=== PATIENT | female | born 2000 | race African-American/Black ===

== ENCOUNTER 2022-05-19 14:46 | Emergency (ER) | payer OTHER ==
[~2022-05-19] VITALS: Ht 170.2 cm; Wt 93.0 kg
--- NOTE | 2022-05-19 15:05 | NUR ---
BIBS C/O DIFFUSE ABD PAIN, ON&OFF x 4DAYS, ALSO C/O NAUSEA. AMBULATORY, PLACED ON BED, AAOX4, IN PAIN 10/10 PS.
--- NOTE | 2022-05-19 15:10 | NUR ---
URINE SAMPLE SENT TO LAB
--- NOTE | 2022-05-19 15:30 | NUR ---
BLOOD DRAWN AND SENT TO LAB
[2022-05-19] MEDS ORDERED: PANTOPRAZOLE 40 MG VIAL ONE (15:41)
[2022-05-19] MEDS ORDERED: ONDANSETRON HCL/PF 4 MG/2 ML VIAL ONE (15:41)
[2022-05-19] MEDS ORDERED: KETOROLAC TROMETHAMINE 15 MG/ML VIAL ONE (15:41)
[2022-05-19 15:44] LABS: BASOPHILS % (AUTO) 0.8 % (0.0-2.0); EOSINOPHILS % (AUTO) 1.7 % (0.0-6.0); HEMATOCRIT 37 % (33-45); HEMOGLOBIN 11.5 g/dL (11.5-14.8); LYMPHOCYTES # (AUTO) 1.7 K/uL (0.8-4.8); LYMPHOCYTES % (AUTO) 26.4 % (20.0-44.0); MEAN CORPUSCULAR HGB CONC 31 g/dl (31.0-36.0); MEAN CORPUSCULAR VOLUME 75 fL (82-100); MONOCYTES % (AUTO) 15.6 % (2.0-12.0); NEUTROPHILS # (AUTO) 3.6 K/uL (1.8-8.9); NEUTROPHILS % (AUTO) 55.5 % (43.0-81.0); PLATELET COUNT (AUTO) 120 K/uL (150-450); RED BLOOD CELL COUNT(AUTO) 4.89 MIL/uL (4.0-5.2); WHITE BLOOD COUNT (AUTO) 6.5 K/uL (4.3-11.0)
[2022-05-19] MEDS: IV NS 0.9% 1,000 ML BAG IV ONE (15:45)
[2022-05-19] MEDS: ONDANSETRON HCL/PF 4 MG/2 ML VIAL IVP ONE (15:46)
[2022-05-19] MEDS: KETOROLAC TROMETHAMINE INJ 30 MG/ML VIAL IV ONE (15:47)
--- NOTE | 2022-05-19 15:48 | NUR ---
TEST RESULT DONE AT [facility] =NEGATIVE
[2022-05-19] MEDS: PANTOPRAZOLE 40 MG VIAL IV ONE (15:50)
[2022-05-19 15:53] LABS: BILIRUBIN,URINE SMALL (NEGATIVE); COLOR,URINE YELLOW (YELLOW); LEUKOCYTE ESTERASE ,URINE NEGATIVE (NEGATIVE); NITRITE, URINE NEGATIVE (NEGATIVE); PROTEIN,URINE 100 mg/dl (NEGATIVE); UGLUCOSE NEGATIVE (NEGATIVE)
[2022-05-19 16:10] LABS: BACTERIA,URINE 1+ /HPF (None Seen); MUCUS,URINE Many /LPF (None Seen); RBC,URINE 51-80 /HPF (0-2); WBC,URINE 0-2 /HPF (0-3)
[2022-05-19 16:11] LABS: ALBUMIN 3.5 g/dL (3.4-5.0); BILIRUBIN,DIRECT 0.1 mg/dL (0.0-0.2); BILIRUBIN,TOTAL 0.5 mg/dL (0.2-1.0); CALCIUM, SERUM 8.6 mg/dL (8.5-10.1); CREATININE 1.2 mg/dL (0.6-1.3)
[2022-05-19 16:16] LABS: POTASSIUM 3.2 mmol/L (3.5-5.1)
[2022-05-19] MEDS ORDERED: CEPH500C2 PO (16:19)
[2022-05-19] MEDS ORDERED: ONDA4TAB5 PO (16:19)
[2022-05-19] MEDS ORDERED: IBUP-1957 PO (16:19)
[2022-05-19 16:24] LABS: BAND % (MANUAL) 7 % (0.0-5.0); EOSINOPHILS % (MANUAL) 1 % (0-4); LYMPHOCYTES % (MANUAL) 21 % (16-48); MONOCYTES % (MANUAL) 17 % (0-11.0); NEUTROPHILS % (MANUAL) 54 (42-76)
--- NOTE | 2022-05-19 17:10 | NUR ---
IV removed. Catheter intact and site benign. Pressure and 4x4 applied to site. No bleeding noted.Patient discharged to home in stable condition. Written and verbal after care instructions given. Patient verbalizes understanding of instruction.
[2022-05-19 17:20] VITALS: BP 115/79
== END 2022-05-19 17:10 | disposition home or self-care (01) ==
LOC: ER 14:49
DX: R10.84 Generalized abdominal pain (principal); N39.0 Urinary tract infection, site not specified
CPT/HCPCS: 99285; 74176; 96374; 71045; 96375; 96361; 85025; 80048; 80076; 81001; 36415; 85007; J2405; J7030; C9113; J1885

== ENCOUNTER 2022-05-22 12:57 | Inpatient (IN) | payer OTHER ==
[~2022-05-22] VITALS: Ht 170.2 cm; Wt 103.4 kg
[~2022-05-22 12:57] MED LIST: CEPH500C2 PO; IBUP-1957 PO; ONDA4TAB5 PO
--- NOTE | 2022-05-22 13:01 | NUR ---
BIBMOTHER PATIENT SENT FROM URGENT CARE TO R/O PYELONEPHRITIS, BACTEREMIA, FUO AND ABDOMINAL PAIN 03/19 X1 WEEK. HAS BEEN ON CEPHALEXIN X3DAY. ORAL TEMP ELEVATED UPON ADMISSION, AWARE. WARM BLANKET PROVIDED FOR COMFORT. AWAITING MD HERNANDEZ.
--- NOTE | 2022-05-22 13:22 | NUR ---
IV ESTABLIHSED L AC 18G. LABS DRAWN AND COLLECTED AT BEDSIDE.
[2022-05-22] MEDS ORDERED: IV NS 0.9% 1,000 ML BAG IV ONE (13:30)
[2022-05-22 13:47] LABS: BASOPHILS % (AUTO) 0.5 % (0.0-2.0); EOSINOPHILS % (AUTO) 0.3 % (0.0-6.0); HEMATOCRIT 32 % (33-45); HEMOGLOBIN 10.2 g/dL (11.5-14.8); LYMPHOCYTES # (AUTO) 1.1 K/uL (0.8-4.8); MEAN CORPUSCULAR HGB CONC 32 g/dl (31.0-36.0); MEAN CORPUSCULAR VOLUME 74 fL (82-100); MONOCYTES # (AUTO) 0.7 K/uL (0.1-1.30); MONOCYTES % (AUTO) 11.6 % (2.0-12.0); NEUTROPHILS # (AUTO) 4.4 K/uL (1.8-8.9); NEUTROPHILS % (AUTO) 70.6 % (43.0-81.0); PLATELET COUNT (AUTO) 117 K/uL (150-450); WHITE BLOOD COUNT (AUTO) 6.3 K/uL (4.3-11.0)
[2022-05-22] MEDS ORDERED: IV NS 0.9% 250 ML IV ONE (13:55)
[2022-05-22] MEDS ORDERED: IOHEXOL-300 100 ML VIAL IV ONE (13:55)
[2022-05-22 14:05] LABS: CALCIUM, SERUM 8.3 mg/dL (8.5-10.1); CREATININE 1.5 mg/dL (0.6-1.3); POTASSIUM 2.9 mmol/L (3.5-5.1)
[2022-05-22 14:16] LABS: BILIRUBIN,DIRECT 0.3 mg/dL (0.0-0.2); BILIRUBIN,TOTAL 0.9 mg/dL (0.2-1.0); TOTAL PROTEIN, SERUM 7.6 g/dL (6.4-8.2)
[2022-05-22 14:26] LABS: BILIRUBIN,URINE SMALL (NEGATIVE); COLOR,URINE YELLOW (YELLOW); LEUKOCYTE ESTERASE ,URINE NEGATIVE (NEGATIVE); NITRITE, URINE NEGATIVE (NEGATIVE); PROTEIN,URINE 100 mg/dl (NEGATIVE); UGLUCOSE NEGATIVE (NEGATIVE)
[2022-05-22] MEDS ORDERED: ACETAMINOPHEN ES 500 MG TABLET PO ONE (14:30)
[2022-05-22] MEDS ORDERED: ACETAMINOPHEN ES 500 MG TABLET ONE (14:32)
--- NOTE | 2022-05-22 14:42 | NUR ---
COVID TEST COLLECTED AND SENT
[2022-05-22 14:48] LABS: BACTERIA,URINE 1+ /HPF (None Seen); SQUAMOUS EPITHELIAL CELL,UR Few /HPF (None Seen); WBC,URINE 0-2 /HPF (0-3)
[2022-05-22] MEDS ORDERED: IV NS 0.9% 1,000 ML IV PRN (15:30)
[2022-05-22] MEDS ORDERED: MAGNESIUM HYDROXIDE 30 ML UDC PO PRN (15:30)
[2022-05-22] MEDS ORDERED: MAG HYDROX/AL HYDROX/SIMETH 30 ML UDC PO PRN (15:30)
[2022-05-22] MEDS ORDERED: POTASSIUM CHLORIDE 20 MEQ TAB.PRT.SR PO ONE ×2 (15:30→16:28)
[2022-05-22] MEDS ORDERED: ACETAMINOPHEN 325 MG TABLET PO PRN (15:30)
[2022-05-22] MEDS ORDERED: Z GUARD REMEDY 4 OZ OINT TP PRN (15:30)
--- NOTE | 2022-05-22 16:30 | NUR ---
CALLED NURSING SUP FOR M/S BED.
--- NOTE | 2022-05-22 17:29 | NUR ---
BED GIVEN 314-2
--- NOTE | 2022-05-22 17:45 | NUR ---
REPORT GIVEN TO TI FOR LOS
--- NOTE | 2022-05-22 18:19 | NUR ---
PT TRANSFERRED TO MED SURG IN STABLE CONDITION
--- NOTE | 2022-05-22 19:30 | NUR ---
RN ADMITTING NOTE PATIENT IN BED, MOTHER AT BEDSIDE. PATIENT IS A/O X 4 ABLE TO MAKE NEEDS KNOWN. PATIENT DOES NOT REPORT ANY N/V AT THIS TIME. CURRENTLY ON RA, TOLERATING WELL, NO SOB OR RESPIRATORY DISTRESS NOTED. BREATHING EVEN AND UNLABORED. PATIENT HAS A LAC 18 G PATENT AND INTACT, FLUSHING WELL. NO SKIN ISSUES NOTED, BELONGINGS INVENTORIED. ORIENTED PATIENT TO ROOM, RN, AND RN PLASTICS. SAFETY MEASURES IN PLACE: BED LOCKED AND IN LOWEST POSITION, CALL LIGHT WITHIN REACH, SIDE RAILS UP. WILL MONITOR PATIENT CLOSELY.
[2022-05-22 20:00] VITALS: BP 106/47
[2022-05-22] MEDS: IV NS 0.9% 1,000 ML IV PRN (20:00)
[2022-05-22] MEDS: METRONIDAZOLE 500MG/ NS 100ML 500 MG in PREMIX 1 EA IV SCH (20:00)
--- NOTE | 2022-05-22 20:18 | NUR ---
RN NOTE PATIENT'S TEMP 103.5, TYLENOL GIVEN AND COOLING MEASURES IMPLEMENTED. PATIENT EXPERIENCING SHIVERING AND CHILLS. WILL REASSESS TEMP AT A LATER TIME
--- NOTE | 2022-05-22 21:30 | NUR ---
RN NOTE PATIENT'S TEMP STILL HIGH AT 103.0 F. ADDED MORE ICE PACK. WILL RECHECK AGAIN
[2022-05-22] MEDS: CIPROFLOXACIN IV RTU 400 MG in PREMIX 1 EA IV SCH (21:33)
[2022-05-22] MEDS ORDERED: ZOLPIDEM TARTRATE 5 MG TABLET PO PRN (22:00)
--- NOTE | 2022-05-22 22:45 | NUR ---
RN NOTE RECHECKED TEMP, 103.1 F. NOTIFIED MD ABOUT FEVER NOT GOING DOWN. AWAITING RESPONSE.
--- NOTE | 2022-05-22 23:27 | NUR ---
TYLENOL FREQUENCY TO BE CHANGED TO Q4HR PRN
[2022-05-23] MEDS: METRONIDAZOLE 500MG/ NS 100ML 500 MG in PREMIX 1 EA IV SCH ×4 (00:27→17:32)
[2022-05-23] MEDS: ACETAMINOPHEN 325 MG TABLET PO PRN ×3 (00:30→15:30)
--- NOTE | 2022-05-23 00:30 | NUR ---
RN NOTE TYLENOL GIVEN FOR TEMP OF 102.8, WILL RECHECK AT A LATER TIME
--- NOTE | 2022-05-23 05:59 | NUR ---
RN NOTE TEMP 98.9, PATIENT NOW AFEBRILE AT THIS TIME.
[2022-05-23 06:34] LABS: BASOPHILS # (AUTO) 0.1 K/uL (0.0-0.2); BASOPHILS % (AUTO) 0.7 % (0.0-2.0); EOSINOPHILS % (AUTO) 0.1 % (0.0-6.0); HEMATOCRIT 26 % (33-45); HEMOGLOBIN 8.7 g/dL (11.5-14.8); LYMPHOCYTES # (AUTO) 1.3 K/uL (0.8-4.8); LYMPHOCYTES % (AUTO) 16.8 % (20.0-44.0); MEAN CORPUSCULAR HGB CONC 33 g/dl (31.0-36.0); MEAN CORPUSCULAR VOLUME 73 fL (82-100); MONOCYTES # (AUTO) 0.8 K/uL (0.1-1.30); MONOCYTES % (AUTO) 10.2 % (2.0-12.0); NEUTROPHILS # (AUTO) 5.7 K/uL (1.8-8.9); NEUTROPHILS % (AUTO) 72.2 % (43.0-81.0); PLATELET COUNT (AUTO) 101 K/uL (150-450); RED BLOOD CELL COUNT(AUTO) 3.62 MIL/uL (4.0-5.2); WHITE BLOOD COUNT (AUTO) 7.9 K/uL (4.3-11.0)
--- NOTE | 2022-05-23 06:51 | NUR ---
RN CLOSING NOTE PATIENT IN BED, EYES CLOSED. PATIENT IS EASILY AWAKENED WITH VERBAL AND TOUCH STIMULI. TEMP MANAGED WITH TYLENOL AND COOLING MEASURES. DOES NOT REPORT OF ANY PAIN AT THIS TIME, PATIENT REMAINS AFEBRILE. PATIENT IS ON RA, TOLERATING WELL, BREATHING EVEN AND UNLABORED. LAC 18 G PATENT AND INTACT WITH NS ONGOING AT 100 ML/HR. INFUSING WELL. SAFETY MEASURES IMPLEMENTED. ALL NEEDS MET AND ATTENDED. ALL ORDERS CARRIED OUT. WILL ENDORSE TO DAY SHIFT NURSE FOR LOS.
[2022-05-23 06:54] LABS: ALBUMIN 2.3 g/dL (3.4-5.0); BILIRUBIN,TOTAL 0.8 mg/dL (0.2-1.0); CALCIUM, SERUM 7.4 mg/dL (8.5-10.1); CREATININE 1.5 mg/dL (0.6-1.3); MAGNESIUM 1.7 mg/dL (1.8-2.4); PHOSPHORUS 3.5 mg/dL (2.5-4.9); POTASSIUM 3.4 mmol/L (3.5-5.1); TOTAL PROTEIN, SERUM 6.2 g/dL (6.4-8.2)
--- NOTE | 2022-05-23 07:36 | NUR ---
RN OPENING NOTES RECEIVED PATIENT IN BED, AWAKE, A/O X4, VERBALLY RESPONSIVE, NO SIGNS OF ACUTE DISTRESS NOTED. ON ROOM AIR, NO SOB NOTED, BREATHING EVEN AND UNLABORED. IV ACCESS ON LEFT ANTECUBITAL AREA #18G, INTACT AND PATENT WITH NS @ 100 ML/HR RUNNING. STILL NOTED WITH SLIGHTLY ELEVATED TEMPERATURE. COOLING MEASURE IN PLACE. WILL CONTINUE TO MONITOR PATIENT. SAFETY MEASURE IN PLACE, BED IN LOWEST AND LOCKED POSITION, SIDE RAILS UP X2, CALL LIGHT PLACED WITHIN EASY REACH.
[2022-05-23] MEDS: CIPROFLOXACIN IV RTU 400 MG in PREMIX 1 EA IV SCH (08:13)
[2022-05-23 08:50] LABS: BAND % (MANUAL) 7 % (0.0-5.0); LYMPHOCYTES % (MANUAL) 13 % (16-48); MONOCYTES % (MANUAL) 10 % (0-11.0); NEUTROPHILS % (MANUAL) 70 (42-76)
[2022-05-23] MEDS: ONDANSETRON HCL/PF 4 MG/2 ML VIAL IVP PRN (09:30)
--- NOTE | 2022-05-23 09:30 | NUR ---
RN NOTE PATIENT WITH EPISODES OF VOMITING X1, WITH PREVIOUSLY EATEN FOOD. ZOFRAN 4 MG GIVEN ORDERED. WILL CONTINUE TO MONITOR PATIENT.
[2022-05-23] MEDS: IV NS 0.9% 1,000 ML IV PRN (11:52)
[2022-05-23] MEDS ORDERED: POTASSIUM CL. PREMIX PERIPHER. 50 ML IV SCH (12:00)
[2022-05-23] MEDS ORDERED: Magnesium 1GM/D5W 100ML PREMIX 100 ML IV SCH (12:00)
[2022-05-23] MEDS: CEFTRIAXONE 2 G in IV D5W 100 ML IV SCH (13:45)
--- NOTE | 2022-05-23 18:51 | NUR ---
RN CLOSING NOTES PATIENT IN BED, AWAKE, A/O X4, VERBALLY RESPONSIVE, NO SIGNS OF ACUTE DISTRESS NOTED. REMAINS STABLE IN ROOM AIR, NO SOB NOTED, BREATHING EVEN AND UNLABORED. IV ACCESS ON LEFT ANTECUBITAL AREA #18G, INTACT AND PATENT WITH NS @ 100 ML/HR RUNNING. ALL DUE MEDS GIVEN. SAFETY MEASURE MAINTAINED, BED IN LOWEST AND LOCKED POSITION, SIDE RAILS UP X2, CALL LIGHT PLACED WITHIN EASY REACH. WILL ENDORSE TO NEXT SHIFT FOR CONTINUITY OF CARE.
--- NOTE | 2022-05-23 19:38 | NUR ---
RN OPENING NOTE PATIENT IN BED, SITTING UP ON THE BED. PATIENT DOES NOT REPORT OF ANY PAIN AT THIS TIME. PATIENT IS ON RA, TOLERATING WELL, BREATHING EVEN AND UNLABORED. LAC 18 G PATENT AND INTACT WITH NS ONGOING AT 100 ML/HR. INFUSING WELL. SAFETY MEASURES IN PLACE: BED LOCKED AND IN LOWEST POSITION, CALL LIGHT WITHIN REACH, SIDE RAILS UP. WILL MONITOR PATIENT CLOSELY.
[2022-05-23 20:00] VITALS: BP_SYST 107; BP_SYST 108; BP_DIAS 59
--- NOTE | 2022-05-23 20:16 | NUR ---
RN NOTE PER LAB, MALARIA SMEAR CAN ONLY BE COLLECTED WHEN PATIENT HAS A FEVER AND THAT THIS IS TO PROCESS WITH PATHOLOGY. MALARIA SMEAR TO BE REORDERED FOR TOMORROW WHEN PATHOLOGY IS AVAILABLE. CHARGE NURSE AWARE.
[2022-05-24] MEDS: METRONIDAZOLE 500MG/ NS 100ML 500 MG in PREMIX 1 EA IV SCH ×2 (00:54→05:28)
[2022-05-24] MEDS: IV NS 0.9% 1,000 ML IV PRN ×2 (00:59→14:37)
[2022-05-24] MEDS: ACETAMINOPHEN 325 MG TABLET PO PRN ×4 (04:05→21:01)
--- NOTE | 2022-05-24 04:05 | NUR ---
RN NOTE PATIENT COMPLAINING OF MILD HEADACHE. TYLENOL GIVEN, 3/10 ON THE PAIN SCALE. WILL REASSESS PAIN AT A LATER TIME.
--- NOTE | 2022-05-24 06:46 | NUR ---
RN CLOSING NOTE PATIENT IN BED, EYES CLOSED, EASILY AWAKENED. PATIENT DOES NOT REPORT OF ANY PAIN AT THIS TIME. PATIENT IS ON RA, TOLERATING WELL, BREATHING EVEN AND UNLABORED. LAC 18 G PATENT AND INTACT WITH NS ONGOING AT 100 ML/HR. INFUSING WELL. SAFETY MEASURES IN PLACE: BED LOCKED AND IN LOWEST POSITION, CALL LIGHT WITHIN REACH, SIDE RAILS UP. ALL NEEDS MET AND ATTENDED. ALL ORDERS CARRIED OUT. WILL ENDORSE TO DAY SHIFT NURSE FOR LOS.
--- NOTE | 2022-05-24 07:30 | NUR ---
RN OPENING NOTE RECEIVED PATIENT ASLEEP IN BED, THOUGH EASILY ROUSED, A/OX4. PATIENT DOES NOT REPORT OF ANY PAIN AT THIS TIME. NO ACUTE DISTRESS NOTED. PATIENT IS ON RA, TOLERATING WELL, BREATHING EVEN AND UNLABORED. LAC 18 G PATENT AND INTACT WITH NS ONGOING AT 100 ML/HR. INFUSING WELL. SAFETY MEASURES IN PLACE: BED LOCKED AND IN LOWEST POSITION, CALL LIGHT WITHIN REACH, SIDE RAILS UP X2, WILL CONT TO MONITOR.
[2022-05-24 07:50] LABS: CALCIUM, SERUM 7.7 mg/dL (8.5-10.1); CREATININE 1.1 mg/dL (0.6-1.3); MAGNESIUM 2.5 mg/dL (1.8-2.4); POTASSIUM 3.2 mmol/L (3.5-5.1)
[2022-05-24 08:00] VITALS: BP 100/64
[2022-05-24 08:01] LABS: BASOPHILS % (AUTO) 0.3 % (0.0-2.0); EOSINOPHILS % (AUTO) 1.3 % (0.0-6.0); HEMATOCRIT 25 % (33-45); HEMOGLOBIN 8.4 g/dL (11.5-14.8); LYMPHOCYTES # (AUTO) 2.3 K/uL (0.8-4.8); MEAN CORPUSCULAR HGB CONC 33 g/dl (31.0-36.0); MEAN CORPUSCULAR VOLUME 74 fL (82-100); MONOCYTES # (AUTO) 0.6 K/uL (0.1-1.30); MONOCYTES % (AUTO) 9.5 % (2.0-12.0); NEUTROPHILS % (AUTO) 49.9 % (43.0-81.0); PLATELET COUNT (AUTO) 125 K/uL (150-450); RED BLOOD CELL COUNT(AUTO) 3.45 MIL/uL (4.0-5.2); WHITE BLOOD COUNT (AUTO) 5.9 K/uL (4.3-11.0)
[2022-05-24] MEDS ORDERED: POTASSIUM CHLORIDE 20 MEQ POWDER PACKET PO SCH (10:00)
[2022-05-24] MEDS: ONDANSETRON HCL/PF 4 MG/2 ML VIAL IVP PRN (10:56)
[2022-05-24 11:39] LABS: BAND % (MANUAL) 3 % (0.0-5.0); LYMPHOCYTES % (MANUAL) 13 % (16-48); MONOCYTES % (MANUAL) 8 % (0-11.0); NEUTROPHILS % (MANUAL) 76 (42-76)
[2022-05-24] MEDS: METRONIDAZOLE 500 MG TABLET PO SCH ×3 (12:34→23:17)
[2022-05-24] MEDS: CEFTRIAXONE 2 G in IV D5W 100 ML IV SCH (13:03)
[2022-05-24 16:00] VITALS: BP 100/60
--- NOTE | 2022-05-24 16:06 | NUR ---
MS RN NOTES: 1600- TYLENOL 650 GIVEN FOR TEMP - 101.8
--- NOTE | 2022-05-24 19:37 | NUR ---
RN OPENING NOTE PATIENT ASLEEP IN BED, THOUGH EASILY ROUSED, A/OX4. PATIENT DOES NOT REPORT OF ANY PAIN AT THIS TIME. NO ACUTE DISTRESS NOTED. PATIENT IS ON RA, TOLERATING WELL, BREATHING EVEN AND UNLABORED. LAC #18; PATENT AND INTACT WITH NS ONGOING AT 100 ML/HR, INFUSING WELL. SAFETY MEASURES IN PLACE: BED LOCKED AND IN LOWEST POSITION, CALL LIGHT WITHIN REACH, SIDE RAILS UP X2, ENDORSED TO PM SHIFT. Addendum: 05/24/22 at 1939 by JUANITA PERKINS RN CLOSING NOTES
--- NOTE | 2022-05-24 20:19 | NUR ---
MS RN OPENING NOTE PT RECEIVED IN BED, ASLEEP BUT EASILY AROUSABLE, A&O X4, CALM, COOPERATIVE. PT ON RA WITH CURRENT O2SAT OF 100%; NO S/S OF RESP DISTRESS, NO SOB OR COUGH, NON-LABORED AND EQUAL BREATHING; APPEARS COMFORTABLE OVERALL. WILL BE PROVIDING TYLENOL TO HELP DECREASE TEMPERATURE, HR ALSO NOTED TO BE ELEVATED AT 112; OTHERWISE VSS, WILL CONTINUE TO MONITOR NEEDED. IV ACCESS ON LAC 18G, INTACT AND PATENT, FLUSHES EASILY WITH NO RESISTANCE, HAS NS RUNNING AT 100 ML/HR. BED IN LOWEST POSITION, CALL LIGHT WITHIN REACH, SIDE RAILS UP X2. WILL CONTINUE TO MONITOR THROUGHOUT THE NIGHT.
--- NOTE | 2022-05-24 21:02 | NUR ---
RN NOTE PT NOTED TO HAVE TEMPERATURE OF 102.7. PT ADMINISTERED TYLENOL 650 MG. WILL MONITOR FOR EFFECTIVENESS.
[2022-05-25] MEDS: IV NS 0.9% 1,000 ML IV PRN ×2 (03:26→16:42)
[2022-05-25] MEDS: METRONIDAZOLE 500 MG TABLET PO SCH ×3 (05:02→18:17)
[2022-05-25 07:17] LABS: CALCIUM, SERUM 7.3 mg/dL (8.5-10.1); CREATININE 1.4 mg/dL (0.6-1.3); POTASSIUM 3.3 mmol/L (3.5-5.1)
--- NOTE | 2022-05-25 07:30 | NUR ---
RN receiving report. AOx4, patent stable, all precautions taken, call light and table within reach, bed at lowest position. Introduced myself to the patient. Will continue to monitor throughout shift.
--- NOTE | 2022-05-25 07:44 | NUR ---
MS RN CLOSING NOTE PT REMAINS IN BED, ASLEEP BUT EASILY AROUSABLE, A&O X4, CALM, COOPERATIVE; SLEPT WELL THROUGHOUT THE NIGHT. PT REMAINS ON RA WITH O2SAT IN THE HIGH 90S-100; NO S/S OF RESP DISTRESS, NO SOB OR COUGH, NON-LABORED AND EQUAL BREATHING. IV ACCESS ON LAC 18G, INTACT AND PATENT, FLUSHES EASILY WITH NO RESISTANCE, HAS NS RUNNING AT 100 ML/HR. ALL DUE MEDS ADMINISTERED DURING THE NIGHT. BED IN LOWEST POSITION, CALL LIGHT WITHIN REACH, SIDE RAILS UP X2. WILL ENDORSE TO DAYSHIFT NURSE TO CONTINUE CARE.
[2022-05-25] MEDS: ACETAMINOPHEN 325 MG TABLET PO PRN ×2 (07:54→16:48)
[2022-05-25 08:00] VITALS: BP 110/54
[2022-05-25 08:47] VITALS: BP 109/57
[2022-05-25 08:57] LABS: IRON, SERUM 9 ug/dl (50-175); TOTAL IRON BINDING CAPACITY 230 ug/dl (250-450)
[2022-05-25 09:09] LABS: FERRITIN 334 ng/mL (8-388)
[2022-05-25] MEDS ORDERED: POTASSIUM CHLORIDE 20 MEQ TAB.PRT.SR PO SCH (11:00)
[2022-05-25 11:23] VITALS: BP 109/65
[2022-05-25] MEDS: FERROUS SULFATE (325 MG) 325 MG/TAB TABLET PO SCH ×2 (12:20→16:42)
[2022-05-25] MEDS: CEFTRIAXONE 2 G in IV D5W 100 ML IV SCH (14:08)
[2022-05-25 16:00] VITALS: BP 112/66
--- NOTE | 2022-05-25 18:44 | NUR ---
RN Closing Notes PT AOx4, VSS stable, temperature is within range. Patient shower, visitor at bedside. Patients states feeling better. Monitored throughout shift and administered medications as prescribed. All safety precautions taken during shift, call light and table within reach, bed at lowest position.
--- NOTE | 2022-05-25 19:50 | NUR ---
MS RN OPENING NOTE PATIENT RECEIVED IN BED, A/OX4. AMBULATES. 1 FAMILY MEMBER AT BEDSIDE. NO S/S OF APPARENT DISTRESS ON ROOM AIR. NO C/O PAIN AT THIS TIME. ON IV NS RUNNING @100ML/HR. ORIENTED AND ENCOURAGED WITH THE USE OF CALL LIGHT. SAFETY IN PLACE. WILL CONTINUE WITH PATIENT'S PLAN OF CARE.
[2022-05-25 20:00] VITALS: BP 99/65
[2022-05-26] MEDS: METRONIDAZOLE 500 MG TABLET PO SCH ×5 (00:10→23:18)
[2022-05-26] MEDS: IV NS 0.9% 1,000 ML IV PRN ×2 (04:06→15:50)
[2022-05-26] MEDS: ACETAMINOPHEN 325 MG TABLET PO PRN ×3 (04:20→23:18)
--- NOTE | 2022-05-26 04:20 | NUR ---
MS RN NOTE PATIENT C/O HEADACHE AT THIS TIME AND REQUEST FOR MEDICATION. GIVEN TYLENOL PRN ORDERED.
[2022-05-26 07:23] LABS: BASOPHILS # (AUTO) 0.1 K/uL (0.0-0.2); BASOPHILS % (AUTO) 0.9 % (0.0-2.0); HEMATOCRIT 25 % (33-45); LYMPHOCYTES % (AUTO) 33.3 % (20.0-44.0); MEAN CORPUSCULAR HGB CONC 32 g/dl (31.0-36.0); MEAN CORPUSCULAR VOLUME 73 fL (82-100); MONOCYTES # (AUTO) 1.1 K/uL (0.1-1.30); MONOCYTES % (AUTO) 17.7 % (2.0-12.0); NEUTROPHILS # (AUTO) 2.9 K/uL (1.8-8.9); NEUTROPHILS % (AUTO) 47.1 % (43.0-81.0); PLATELET COUNT (AUTO) 191 K/uL (150-450); RED BLOOD CELL COUNT(AUTO) 3.39 MIL/uL (4.0-5.2); WHITE BLOOD COUNT (AUTO) 6.1 K/uL (4.3-11.0)
--- NOTE | 2022-05-26 07:29 | NUR ---
MS RN CLOSING NOTE REPORT GIVEN TO PIOTR FOR CONTINUITY OF CARE. NEEDS ATTENDED.
--- NOTE | 2022-05-26 07:30 | NUR ---
RN Opening Notes PT AOx4 able to express her own concerns. Patients shows no signs of distress, states feeling fatigue. Reviewed care plan with patient. All safety precautions taken, call light and table within reach. Will continue to monitor and provide medications as scheduled.
[2022-05-26 07:47] LABS: BILIRUBIN,TOTAL 0.4 mg/dL (0.2-1.0); CALCIUM, SERUM 7.5 mg/dL (8.5-10.1); POTASSIUM 3.2 mmol/L (3.5-5.1)
[2022-05-26 08:00] VITALS: BP 109/61
[2022-05-26] MEDS: FERROUS SULFATE (325 MG) 325 MG/TAB TABLET PO SCH ×3 (08:36→17:42)
[2022-05-26] MEDS ORDERED: DIATR MEGLU/DIATRIZOATE SODIUM 30 ML BOTTLE (GASTROGRAPHIN) ONE (09:40)
[2022-05-26] MEDS ORDERED: IV NS 0.9% 250 ML IV ONE (11:45)
[2022-05-26] MEDS ORDERED: IOHEXOL-350 100 ML VIAL IV ONE (11:45)
[2022-05-26] MEDS: POTASSIUM CHLORIDE 20 MEQ TAB.PRT.SR PO SCH ×2 (11:57→13:39)
[2022-05-26 12:27] LABS: BAND % (MANUAL) 4 % (0.0-5.0); BASOPHILS % (MANUAL) 0 % (0.0-2.0); EOSINOPHILS % (MANUAL) 0 % (0-4); LYMPHOCYTES % (MANUAL) 27 % (16-48); MONOCYTES % (MANUAL) 11 % (0-11.0); NEUTROPHILS % (MANUAL) 58 (42-76)
[2022-05-26] MEDS: CEFTRIAXONE 2 G in IV D5W 100 ML IV SCH (14:43)
[2022-05-26 16:00] VITALS: BP 104/57
[2022-05-26 17:00] VITALS: BP 87/37
[2022-05-26 17:30] VITALS: BP 93/49
[2022-05-26 17:53] VITALS: BP 109/60
[2022-05-26] MEDS ORDERED: IV NS 0.9% 1,000 ML IV ONE (18:00)
--- NOTE | 2022-05-26 18:51 | NUR ---
RN Closing Note PT AOx4, VSS are now stable. Pt able to express her own concerns. WIll ENdorse to moitore temperatures and B/P. Administered medications as prescribed, admin. bolus NS per Dr. Mazariegos's order. Patient at bedside, contacted ID provider to contact the family, pending answer. All safety precautions taken, call ligh and table within reach, bed at lowest position.
--- NOTE | 2022-05-26 19:27 | NUR ---
MS RN OPENING NOTES: RECEIVED PATIENT AWAKE IN BED, BED IN LOW POSITION CALL LIGHTS WITHIN REACH, NO COMPLAIN OF PAIN AND DISCOMFORT AT THIS TIME, ON ROOM AIR SATURATING WELL, PATIENT IS A/OX4 ABLE TO MAKE NEEDS KNOWN. WITH IV LINE AT RIGHT HAND #20 WITH ONGOING NSS@150ML/HR INFUSING WELL, PATIENT KEPT CLEAN AND DRY ALL NEEDS MET WILL CONTINUE TO MONITOR.
[2022-05-26 20:00] VITALS: BP 113/65
[2022-05-26] MEDS: IV NS 0.9% 1,000 ML IV SCH (20:17)
[2022-05-26] MEDS ORDERED: HYDROCODONE/APAP 10/325MG TABLET PO PRN (20:30)
--- NOTE | 2022-05-26 23:19 | NUR ---
RN NOTES: PATIENT WAS NOTED WITH TEMP OF 100.3 TYLENOL Q4H 650MG WAS GIVEN, COLD PACKS ON BILATERAL VALENTIN TSB, WILL CONTINUE TO MONITOR.
[2022-05-27] MEDS: IV NS 0.9% 1,000 ML IV SCH ×2 (01:55→08:50)
--- NOTE | 2022-05-27 07:30 | NUR ---
RN Receiving report. PT AOx4, no signs of distress. Patient able to express her own concerns, states no discomfort but feeling tired. Patients vital signs are stable with a temperature 99.9, administered Tylenol as prescribed. Fluids running as ordered by physician. All safety precautions taken, bed at lowest position, call light within reach. Patient states she might leave AMA today and go out of state to her parents home since she believes she is not feeling better. Educated patient on importance of medication and antibiotic adherence. Educated patient on importance of monitoring Vitals since she will be traveling. Patient understands and is currently planning with family. Will continue to monitor throughout shift and provide medications as scheduled.
[2022-05-27] MEDS: ACETAMINOPHEN 325 MG TABLET PO PRN (07:40)
--- NOTE | 2022-05-27 07:45 | NUR ---
RN CLOSING NOTES: PATIENT SLEEP IN BED AROUSABLE TO VERBAL STIMULI, BED IN LOW POSITION CALL LIGHTS WITHIN REACH, NO COMPLAIN OF PAIN AND DISCOMFORT AT THIS TIME, ON ROOM AIR SATURATING WELL, PATIENT IS A/O4 ABLE TO MAKE NEEDS KNOWN, ON MONITORING FOR FEVER AND LOW BLOOD PRESSURE, DUE MEDS GIVEN, ALL NEEDS MET ENDORSE TO INCOMING SHIFT.
[2022-05-27 08:00] VITALS: BP 97/50
[2022-05-27 08:35] LABS: BILIRUBIN,TOTAL 0.5 mg/dL (0.2-1.0); CALCIUM, SERUM 7.4 mg/dL (8.5-10.1); POTASSIUM 3.6 mmol/L (3.5-5.1)
[2022-05-27 09:35] LABS: BASOPHILS # (AUTO) 0.1 K/uL (0.0-0.2); BASOPHILS % (AUTO) 1.1 % (0.0-2.0); EOSINOPHILS % (AUTO) 0.4 % (0.0-6.0); HEMATOCRIT 25 % (33-45); HEMOGLOBIN 8.1 g/dL (11.5-14.8); LYMPHOCYTES # (AUTO) 2.3 K/uL (0.8-4.8); LYMPHOCYTES % (AUTO) 34.6 % (20.0-44.0); MEAN CORPUSCULAR HGB CONC 32 g/dl (31.0-36.0); MEAN CORPUSCULAR VOLUME 73 fL (82-100); MONOCYTES # (AUTO) 1.2 K/uL (0.1-1.30); MONOCYTES % (AUTO) 17.8 % (2.0-12.0); NEUTROPHILS # (AUTO) 3.1 K/uL (1.8-8.9); NEUTROPHILS % (AUTO) 46.1 % (43.0-81.0); PLATELET COUNT (AUTO) 242 K/uL (150-450); RED BLOOD CELL COUNT(AUTO) 3.44 MIL/uL (4.0-5.2); WHITE BLOOD COUNT (AUTO) 6.7 K/uL (4.3-11.0)
[2022-05-27] MEDS: FERROUS SULFATE (325 MG) 325 MG/TAB TABLET PO SCH (10:19)
--- NOTE | 2022-05-27 13:30 | NUR ---
RN Closing Note-AMA PT AOx4, with family at bedside. Father states he wants daughter to leave AMA, explained plan of care and what has been administered and monitor. Father believes nothing has been done for patient. Per daughter its ok to discuss medical situation with family. Made family aware of blood pressure decrease yesterday and temperatures. Educated on importance of monitoring at home or if traveling. Family declining care and not comfortable signing AMA. Discussed with charge nurse. Patient left, stable and no incidents to report, all safety precautions are taken. PT able to express her own concerns.
[2022-05-27 16:48] VITALS: BP 127/53
[2022-05-27 22:00] LABS: BAND % (MANUAL) 2 % (0.0-5.0); LYMPHOCYTES % (MANUAL) 19 % (16-48); MONOCYTES % (MANUAL) 10 % (0-11.0); NEUTROPHILS % (MANUAL) 69 (42-76)
== END 2022-05-27 13:30 | disposition home or self-care (01) | DRG 871 ==
LOC: ER 13:01 → TRANSITION 15:52 → TELE 18:15 → MED 20:16
PROVIDERS: ADMIT Nurse Practitioner Acute Care; ATTEND Internal Medicine
DX: A41.9 Sepsis, unspecified organism (principal); N17.0 Acute kidney failure with tubular necrosis; E87.1 Hypo-osmolality and hyponatremia; A09 Infectious gastroenteritis and colitis, unspecified; E87.6 Hypokalemia; D69.6 Thrombocytopenia, unspecified; Z20.822 Contact with and (suspected) exposure to COVID-19; D17.71 Benign lipomatous neoplasm of kidney; D50.9 Iron deficiency anemia, unspecified; K76.9 Liver disease, unspecified; D73.5 Infarction of spleen; Z87.440 Personal history of urinary (tract) infections
CPT/HCPCS: 36415; 71045-TC; 74178; 80048-TC; 80053-TC; 80076-TC; 81001; 82728-TC; 83540-TC; 83605-TC; 83690-TC; 83735-TC; 84100-TC; 84703-TC; 85025-TC; 85652-TC; 86140-TC; 86709; 87040-TC; 87045-TC; 87081-TC; 87086-TC; 87207-TC; 87806; A4216; C9803; G0378; J0696; J0744; J2405; J3475; J3480; J7030; J7050; J7060; Q9963; Q9967